=== PATIENT | male | born 1955 | race Caucasian/White ===

== ENCOUNTER 2020-12-18 08:43 | Emergency (ER) | payer OTHER ==
[2020-12-18 10:02] LABS: INFLUENZA A NAA NEGATIVE (NEGATIVE)
[2020-12-18 10:09] LABS: CORONAVIRUS 2019 SARS-COV-2 POSITIVE (NEGATIVE)
[2020-12-18 10:52] LABS: BASOPHIL 0.7 % (0-2); HCT 40.8 % (42.0-52.0); HGB 13.5 g/dl (13.2-18.0); LYMPHOCYTE 12.8 % (15-48); MCH 30.7 pg (25.0-31.0); MCHC 33.1 g/dL (32.0-36.0); MCV 92.7 fL (78.0-100.0); MONOCYTE 11.5 % (0-12); MPV 9.7 fL (6.0-9.5); NEUTROPHIL 74.7 % (41-80); PLT 166 K/uL (150-400); RDW 13.2 % (11.5-14.0); WBC 6.95 K/uL (4.0-10.5)
[2020-12-18 11:03] LABS: BUN/CREAT RATIO (CALC) 14.5 RATIO; CREATININE 1.1 mg/dL (0.67-1.17); POTASSIUM 4.7 mmol/L (3.5-5.1)
[2020-12-18] MEDS ORDERED: MEDROL 4MG DOSEP4 MG PO (11:35)
== END 2020-12-18 12:01 | disposition home or self-care (01) ==
LOC: FER 08:43
PROVIDERS: Emergency Medicine
DX: U07.1 COVID-19 (principal); I10 Essential (primary) hypertension; J44.9 Chronic obstructive pulmonary disease, unspecified; Z87.891 Personal history of nicotine dependence
CPT/HCPCS: 36415; 71045; 80048; 85025; U0002